=== PATIENT | male | born 1965 | race Two or more races ===

== ENCOUNTER 2017-05-10 10:49 | Outpatient (CLI) | payer OTHER ==
[~2017-05-10 10:49] MED LIST: CEFTIN500 MG PO; FLONASE16 G1 NS; ZYRTEC10 MG PO
== END 2017-05-10 11:13 | disposition home or self-care (01) ==
LOC: RAD 501 10:49
DX: R05 Cough (principal); J11.1 Influenza due to unidentified influenza virus with other respiratory manifestations; J45.21 Mild intermittent asthma with (acute) exacerbation

== ENCOUNTER 2017-05-16 11:29 | Outpatient (CLI) | payer OTHER | END 2017-05-16 11:33 | disposition home or self-care (01) | LOC: RAD 501 11:29 | DX: J45.998 Other asthma (principal) ==

== ENCOUNTER 2018-01-15 07:58 | Outpatient (CLI) | payer OTHER | END 2018-01-15 08:06 | disposition home or self-care (01) | LOC: NUCLEAR 07:58 | DX: R10.13 Epigastric pain (principal); K30 Functional dyspepsia; K31.84 Gastroparesis | CPT/HCPCS: 78264; A9541 ==

== ENCOUNTER 2018-10-16 09:15 | Outpatient (CLI) | payer OTHER | END 2018-10-16 09:23 | disposition home or self-care (01) | LOC: RAD 09:15 | DX: M79.672 Pain in left foot (principal) ==

== ENCOUNTER 2019-03-06 11:08 | Outpatient (CLI) | payer OTHER ==
[~2019-03-06] VITALS: Ht 190.5 cm; Wt 136.1 kg
[2019-03-06] MEDS ORDERED: ZYRTEC10 MG PO (12:52)
[2019-03-06] MEDS ORDERED: FLONASE16 GM NASAL (12:52)
[2019-03-06] MEDS ORDERED: CEFUROXIME500 MG PO (12:52)
== END 2019-03-06 13:05 | disposition home or self-care (01) ==
LOC: OFIC 805 11:08
DX: J32.8 Other chronic sinusitis (principal); J34.2 Deviated nasal septum; H61.23 Impacted cerumen, bilateral

== ENCOUNTER 2019-03-14 16:03 | Emergency (ER) | payer OTHER ==
[~2019-03-14] VITALS: Ht 190.5 cm; Wt 131.1 kg
[~2019-03-14 16:03] MED LIST changes: +CEFUROXIME500 MG PO; +FLONASE16 GM NASAL
[2019-03-14] MEDS ORDERED: GLUMETZA500 MG PO (16:30)
[2019-03-14] MEDS ORDERED: SYNTHROID88 MCG PO (16:30)
[2019-03-14] MEDS ORDERED: ATORVASTATIN CA10 MG PO (16:31)
[2019-03-14] MEDS ORDERED: CIPRO500 MG PO (20:14)
== END 2019-03-14 21:54 | disposition home or self-care (01) ==
LOC: ER 16:03
DX: R19.7 Diarrhea, unspecified (principal)

== ENCOUNTER 2019-09-19 12:25 | Outpatient (CLI) | payer OTHER ==
[~2019-09-19 12:25] MED LIST changes: +ATORVASTATIN CA10 MG PO; +CIPRO500 MG PO; +GLUMETZA500 MG PO; +SYNTHROID88 MCG PO
== END 2019-09-19 12:32 | disposition home or self-care (01) ==
LOC: RAD 12:25
PROVIDERS: ATTEND Physical Medicine & Rehabilitation
DX: M54.5 Low back pain (principal)

== ENCOUNTER 2021-02-25 14:07 | Outpatient (CLI) | payer OTHER | END 2021-02-25 14:16 | disposition home or self-care (01) | LOC: RAD 14:07 | DX: M77.31 Calcaneal spur, right foot (principal); M21.6X1 Other acquired deformities of right foot ==

== ENCOUNTER 2021-03-23 14:25 | Outpatient (CLI) | payer OTHER | END 2021-03-23 14:42 | disposition home or self-care (01) | LOC: RAD 14:25 | DX: M99.01 Segmental and somatic dysfunction of cervical region (principal); M99.02 Segmental and somatic dysfunction of thoracic region; M99.03 Segmental and somatic dysfunction of lumbar region ==